=== PATIENT | male | born 1960 | race African-American/Black ===

== ENCOUNTER 2019-11-13 02:34 | Inpatient (IN) | payer SELFPAY ==
[~2019-11-13] VITALS: Ht 167.6 cm; Wt 91.5 kg
--- NOTE | 2019-11-13 02:38 | PHYS DOC ---
Past History Past Medical History: Asthma, Bronchitis Past Medical History Chronic Back pain Smoking: Non-smoker General Adult HPI: HPI: ".. I woke up with this cough.. about 9..may be 10... and I can't stop coughing.. I have hx asthma.. and I was at [facility] a week or two ago.. the gave me prednisone.. and inhaler's.. but. . this pinky started again tonight... " Patient is a 59 year old male who presents with above hx and complaints persistent intractable cough since approximately 2100 hrs. tonight. Patient denies any fever chills but has been diaphoretic. Patient denies any history of cardiac disorders. Patient does give a history of past asthma and bronchitis. Patient has history of chronic low back pain. Patient normally follows with Jaja Osuna at the [facility]. No recent travel outside the [place] area. No specific ill contacts. 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 Patient does not smoke tobacco. Pt. reportedly had a negative Covid test and flu tests 2 weeks ago at [facility]. Review of Systems: Review of Systems: Constitutional: Denies fever or chills Eyes: Denies change in visual acuity HENT: Denies nasal congestion or sore throat Respiratory: Complains of an intractable cough and wheezing Cardiovascular: Denies chest pain or edema GI: Denies abdominal pain, nausea, vomiting, bloody stools or diarrhea : Denies dysuria Musculoskeletal: Denies back pain or joint pain Integument: Denies rash Neurologic: Denies headache, focal weakness or sensory changes Endocrine: Denies polyuria or polydipsia Lymphatic: Denies swollen glands Psychiatric: Denies depression or anxiety Heart Score: HEART Score for Chest Pain: HEART Score for Chest Pain Response (Comments) Value History Moderately Suspicious 1 ECG Nonspecific Repolarizatio 1 Age >45 - < 65 1 Risk Factors 1 or 2 Risk Factors 1 Troponin >1-<3x Normal Limit 1 Total 5 Risk Factors: Risk Factors: DM, Current or recent (<one month) smoker, HTN, HLP, family history of CAD, obesity. Risk Scores: Score 0 - 3: 2.5% MACE over next 6 weeks - Discharge Home Score 4 - 6: 20.3% MACE over next 6 weeks - Admit for Clinical Observation Score 7 - 10: 72.7% MACE over next 6 weeks - Early Invasive Strategies Family History: Family History: Mother had history of pancreatic cancer and at age 79. Father is still alive at 86 and no health problems. Current Medications: Current Meds: See nursing for home meds. Allergies: Allergies: Allergic to a pain med he does not remember the name-nonnarcotic Physical Exam: PE: Constitutional: Moderate acute distress, non-toxic appearance. [] HENT: Normocephalic, atraumatic, bilateral external ears normal, oropharynx moist, no oral exudates, nose clear rhinorrhea Eyes: PERRLA, EOMI, conjunctiva normal, no discharge. [] Neck: Normal range of motion, no tenderness, supple, no stridor. [] Cardiovascular:Heart rate regular rhythm, no murmur, PMI to the left Lungs & Thorax: Bilateral breath sounds equal apex with basilar crackles on auscultation []. The patient does few scattered wheezes. Abdomen: Bowel sounds normal, soft, no tenderness, no masses, no pulsatile masses. [] Skin: Warm, diaphoretic, no erythema, no rash. [] Back: No tenderness, no CVA tenderness. [] Extremities: No tenderness, no cyanosis, no clubbing, ROM intact, no edema. No cording in the legs appreciated Neurologic: Alert and oriented X 3, moves extremities on request, has distal s ensory., no focal deficits noted. [] Psychologic: Affect anxious, judgement normal, mood normal. [] EKG: EKG: My interpretation EKG shows a sinus rhythm at 73 bpm. Does have bimodal P waves and left axis deviation. There is a fascicular block with somewhat atypical repolarization. Does exhibit a strain pattern -abnormal EKG [] Radiology/Procedures: Radiology/Procedures: IMAGING REPORT Signed PATIENT: DASIA ROMERO ACCOUNT: [id number] : 1960 LOCATION: ER AGE: 59 SEX: M EXAM STATUS: REG ER ORD. PHYSICIAN: DIMITRI PANDEY MD REASON: cough, dyspnea- acute onset PROCEDURE: CHEST PA & LATERAL CHEST PA LATERAL Technique: PA and lateral views of the chest were obtained. Clinical History: Cough and dyspnea Comparison: None. Findings: The heart and pulmonary vasculature appear within normal limits. There is a few linear opacities in the lung bases. The pleural margins are clear. Impression: Mild basal infiltrates could be discoid atelectasis or early pneumonia. Electronically signed by: Baljinder Franks III, MD (11/13/2019 3:59 AM) [id number] DICTATED AND SIGNED BY: BALJINDER FRANKS III, MD DATE: 11/13/19 0359 CC: DIMITRI PANDEY MD; ARCADIO OSUNA APRN ~ [][address] [id number] IMAGING REPORT Signed PATIENT: DASIA ROMERO ACCOUNT: [id number] : 1960 LOCATION: ER AGE: 59 SEX: M EXAM STATUS: REG ER ORD. PHYSICIAN: DIMITRI PANDEY MD REASON: cough, dyspnea, OMNI 350, 100ml PROCEDURE: CT ANGIOGRAPHY CHEST CTA Chest with contrast: Clinical History: Shortness of breath. Axial helical images of the chest were obtained after the administration of 100 cc of IV Omni 350 and timed appropriately for a pulmonary arterial study. Conventional axial reconstruction was performed in addition to coronal, sagittal and bilateral oblique MIP (maximum intensity projection). This study was ordered to detect possible pulmonary embolism. There are no filling defects to suggest pulmonary embolism. There is mucous plugging in the lower lobes bilaterally. There are a few tiny noncalcified pulmonary nodules on the right. The largest measures 3 mm in diameter. There is no mediastinal or hilar lymphadenopathy. The thoracic aorta appears normal. Impression: 1. No evidence of pulmonary embolism. 2. Mucous plugging in the lower lobes. 3. Tiny pulmonary nodules. Recommend a 6 month follow-up CT chest without contrast. End impression PQRS Compliance Statement: One or more of the following individualized dose reduction techniques were utilized for this examination: 1. Automated exposure control 2. Adjustment of the mA and/or kV according to patient size 3. Use of iterative reconstruction technique Electronically signed by: Baljinder Franks III, MD (11/13/2019 5:07 AM) [id number] Course & Med Decision Making: Course & Med Decision Making Pertinent Labs and Imaging studies reviewed. (See chart for details) Discussed presentation, testing and treatment plan with Dr. Oviedo. Admit to Dr. Oviedo with Cardiology Consult. Impression: 1. Atypical Pneumonia 2. Elevated Trop. 0.061 3. Dyspnea/ Cough 4. Intra Ventricular Block/ Fasicular Block [] Dragon Disclaimer: Jacob Disclaimer: This electronic medical record was generated, in whole or in part, using a voice recognition dictation system. Departure Departure: Disposition: HOME/RESIDENCE PRIOR TO ADM Condition: STABLE DIMITRI PANDEY MD November 13, 2019 02:38
--- NOTE | 2019-11-13 03:02 | EKG ---
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
[2019-11-13] MEDS ORDERED: ALBUTEROL SULFATE 8GM INHALER. IH ONE (03:30)
[2019-11-13] MEDS ORDERED: methylPREDNISolone SOD SUCC PF 125 MG/2 ML VIAL. IV ONE (03:30)
[2019-11-13] MEDS ORDERED: IV RINGERS SOLUTION,LACTATED 1,000 ML IV SCH (03:30)
[2019-11-13 03:59] LABS: BACTERIA,URINE 0 /HPF (0-FEW); BILIRUBIN,URINE NEG (NEG); CLARITY,URINE CLEAR; COLOR,URINE YELLOW; GLUCOSE,URINE NEG (NEG); NITRITE,URINE NEG (NEG); RBC,URINE 0 /HPF (0-2); SQUAMOUS EPITHELIAL CELL,UR OCC /LPF; UROBILINOGEN,URINE 0.2 mg/dL (0.2 mg/dL)
[2019-11-13 04:00] LABS: CALCIUM 9.1 mg/dL (8.5-10.1); GFR 92.2; POTASSIUM 3.8 mmol/L (3.5-5.1)
[2019-11-13 04:02] LABS: AMPHETAMINE/METHAMPHETAMINE NEG (NEG); BARBITURATES NEG (NEG); BENZODIAZEPINES NEG (NEG); CANNABINOIDS POS (NEG); COCAINE NEG (NEG); METHADONE NEG (NEG); OPIATES POS (NEG); PHENCYCLIDINE NEG (NEG)
--- NOTE | 2019-11-13 04:02 | RAD ---
CHEST PA LATERAL Technique: PA and lateral views of the chest were obtained. Clinical History: Cough and dyspnea Comparison: None. Findings: The heart and pulmonary vasculature appear within normal limits. There is a few linear opacities in the lung bases. The pleural margins are clear. Impression: Mild basal infiltrates could be discoid atelectasis or early pneumonia. Electronically signed by: Markie Saavedra III, MD (11/13/2019 3:59 AM) [id number]
[2019-11-13] MEDS ORDERED: MORPHINE SULFATE 10 MG/ML SYRINGE. ONE (04:12)
[2019-11-13 04:15] LABS: ALBUMIN 3.8 g/dL (3.4-5.0); DIRECT BILIRUBIN 0.1 mg/dL (0.0-0.2); TOTAL BILIRUBIN 0.3 mg/dL (0.2-1.0)
[2019-11-13 04:24] LABS: BASO % 1 % (0-3); EOS # 0.5 x10^3/uL (0.0-0.7); EOS % 8 % (0-3); HEMATOCRIT 41.2 % (39.0-53.0); HEMOGLOBIN 13.7 g/dL (13.0-17.5); LYMPH # 2.2 x10^3/uL (1.0-4.8); LYMPH % 37 % (24-48); MEAN CORPUSCULAR HEMOGLOBIN 32 pg (25-35); MEAN CORPUSCULAR HGB CONC 33 g/dL (31-37); MEAN CORPUSCULAR VOLUME 95 fL (79-100); MONO # 0.7 x10^3/uL (0.0-1.1); MONO % 12 % (0-9); NEUT # 2.5 x10^3uL (1.8-7.7); NEUT % 42 % (31-73); PLATELET COUNT 231 x10^3/uL (140-400); RED BLOOD COUNT 4.32 x10^6/uL (4.30-5.70); RED CELL DISTRIBUTION WIDTH 13.4 % (11.5-14.5); WHITE BLOOD COUNT 5.9 x10^3/uL (4.0-11.0)
[2019-11-13] MEDS ORDERED: AZITHROMYCIN 250 MG TABLET. PO ONE (04:30)
[2019-11-13] MEDS ORDERED: MORPHINE SULFATE 10 MG/ML SYRINGE. SQ ONE (04:30)
[2019-11-13] MEDS ORDERED: CONTRAST GIVEN MC PRN (04:30)
[2019-11-13] MEDS ORDERED: IV NORMAL SALINE 50ML 50 ML ONE (04:47)
[2019-11-13] MEDS ORDERED: cefTRIAXone SODIUM 1 GM VIAL ONE (04:47)
[2019-11-13] MEDS ORDERED: IOHEXOL 350 MG/ML 100 ML VIAL. IV ONE (05:00)
--- NOTE | 2019-11-13 05:10 | RAD ---
CTA Chest with contrast: Clinical History: Shortness of breath. Axial helical images of the chest were obtained after the administration of 100 cc of IV Omni 350 and timed appropriately for a pulmonary arterial study. Conventional axial reconstruction was performed in addition to coronal, sagittal and bilateral oblique MIP (maximum intensity projection). This study was ordered to detect possible pulmonary embolism. There are no filling defects to suggest pulmonary embolism. There is mucous plugging in the lower lobes bilaterally. There are a few tiny noncalcified pulmonary nodules on the right. The largest measures 3 mm in diameter. There is no mediastinal or hilar lymphadenopathy. The thoracic aorta appears normal. Impression: 1. No evidence of pulmonary embolism. 2. Mucous plugging in the lower lobes. 3. Tiny pulmonary nodules. Recommend a 6 month follow-up CT chest without contrast. End impression PQRS Compliance Statement: One or more of the following individualized dose reduction techniques were utilized for this examination: 1. Automated exposure control 2. Adjustment of the mA and/or kV according to patient size 3. Use of iterative reconstruction technique Electronically signed by: Markie Saavedra III, MD (11/13/2019 5:07 AM) [id number]
[2019-11-13] MEDS ORDERED: ASPIRIN 325 MG TABLET PO ONE (06:00)
[2019-11-13] MEDS ORDERED: ENOXAPARIN ** NOTE DOSE ** SYRINGE SQ ONE (06:00)
[2019-11-13] MEDS ORDERED: ACETAMINOPHEN 325 MG TABLET PO PRN (06:00)
[2019-11-13] MEDS ORDERED: ONDANSETRON PF 4 MG/2 ML VIAL. IVP PRN (06:00)
[2019-11-13] MEDS ORDERED: ANTI-COAG MONITOR BY PHARMACY. MC PRN (06:15)
[2019-11-13] MEDS ORDERED: IPRATRPIUM/ALBUTEROL 0.5/2.5MG 3 ML NEBU. NEB SCH (08:00)
[2019-11-13] MEDS ORDERED: ASPIRIN CHEWABLE 81 MG TABLET. PO SCH (08:00)
[2019-11-13 08:43] VITALS: BP 126/90
[2019-11-13] MEDS ORDERED: ALBUTEROL SULFATE 8GM INHALER. INH PRN (09:00)
--- NOTE | 2019-11-13 09:24 | PDOC2 ---
CARDIAC CONSULT DATE OF CONSULT Date Of Consult DATE: 11/13/19 TIME: 09:20 REASON FOR CONSULT Reason for Consult Dyspnea Elevated troponin REFERRING PHYSICIAN Referring Physician Dr. Yao SOURCE Source: Chart review, Patient HPI History of Present Illness This is a 59 yo male who presented secondary to persistent cough that has not improved with outpatient treatment. Reports persistent cough for the last 2 months. Has been coughing so much that his chest is sore. Also has chronic back pain, which has eli exacerbated by coughing. Cough productive of clear sputum. Was treated at the [facility] about two weeks ago with prednisone and inhaler, which did improve cough, but returned within 2-3 days of completing treatment. Was swabbed at the [facility] for COVID and influenza 2 weeks ago, which he reports as normal. No dizziness, palpitations, or LE edema. Reports all the muscles in his chest are sore and are tender upon palpitations. Cough worsens his pain. Troponin noted to be mildly elevated upon arrival, which prompted this consult. No h/o CAD. PAST MEDICAL HISTORY Pulmonary: Asthma Renal/: Benign prostatic enlarg. PAST SURGICAL HISTORY Past Surgical History: No pertinent history FAMILY HISTORY Family History: Other (AFIB, mother ) SOCIAL HISTORY Smoke: No ALCOHOL: none Drugs: Marijuana Lives: Alone CURRENT MEDICATIONS Current Medications Current Medications Lactated Ringer's 1,000 ml @ 100 mls/hr Q10H IV Last administered on 11/13/19at 03:30; Start 11/13/19 at 03:30; Stop 11/13/19 at 13:29 Albuterol Sulfate (Ventolin Hfa Inhaler) 2 puff 1X ONCE IH Last administered on 11/13/19at 03:06; Start 11/13/19 at 03:30; Stop 11/13/19 at 03:31; Status DC Methylprednisolone Sodium Succinate (SOLU-Medrol 125MG VIAL) 125 mg 1X ONCE IV Last administered on 11/13/19at 03:30; Start 11/13/19 at 03:30; Stop 11/13/19 at 03:31; Status DC Morphine Sulfate (Morphine 10mg Syringe) 10 mg 1X ONCE SQ Last administered on 11/13/19at 04:25; Start 11/13/19 at 04:30; Stop 11/13/19 at 04:31; Status DC Azithromycin (Zithromax) 500 mg 1X ONCE PO Last administered on 11/13/19at 04:30; Start 11/13/19 at 04:30; Stop 11/13/19 at 04:31; Status DC Ceftriaxone Sodium 1 gm/ Sodium Chloride 50 ml @ 100 mls/hr 1X ONCE IV Last administered on 11/13/19at 04:30; Start 11/13/19 at 04:30; Stop 11/13/19 at 04:59; Status DC Morphine Sulfate (Morphine 10mg Syringe) 10 mg STK-MED ONCE .ROUTE ; Start 11/13/19 at 04:12; Stop 11/13/19 at 04:13; Status DC Iohexol (Omnipaque 350 Mg/ml) 100 ml 1X ONCE IV Last administered on 11/13/19at 04:34; Start 11/13/19 at 05:00; Stop 11/13/19 at 05:01; Status DC Info (Do NOT chart on this entry -- for MONITORING) 1 each PRN DAILY PRN MC SEE COMMENTS; Start 11/13/19 at 04:30; Stop 11/15/19 at 04:29 Sodium Chloride 50 ml @ As Directed STK-MED ONCE .ROUTE ; Start 11/13/19 at 04:47; Stop 11/13/19 at 04:47; Status DC Ceftriaxone Sodium (Rocephin) 1 gm STK-MED ONCE .ROUTE ; Start 11/13/19 at 04:47; Stop 11/13/19 at 04:47; Status DC Aspirin (Ladarius Aspirin) 325 mg 1X ONCE PO Last administered on 11/13/19at 05:38; Start 11/13/19 at 06:00; Stop 11/13/19 at 06:01; Status DC Enoxaparin Sodium (Lovenox 100mg Syringe) 90 mg 1X ONCE SQ Last administered on 11/13/19at 05:38; Start 11/13/19 at 06:00; Stop 11/13/19 at 06:01; Status DC Ondansetron HCl (Zofran) 4 mg PRN Q4HRS PRN IVP NAUSEA/VOMITING; Start 11/13/19 at 06:00; Stop 11/14/19 at 05:59 Acetaminophen (Tylenol) 650 mg PRN Q4HRS PRN PO FEVER > 100.3'F Last administered on 11/13/19at 09:04; Start 11/13/19 at 06:00; Stop 11/14/19 at 05:59 Albuterol/ Ipratropium (Duoneb) 3 ml RTQID NEB ; Start 11/13/19 at 08:00; Stop 11/13/19 at 08:57; Status DC Aspirin (Aspirin Chewable) 81 mg DAILYWBKFT PO Last administered on 11/13/19at 09:03; Start 11/13/19 at 08:00 Enoxaparin Sodium (Lovenox 100mg Syringe) 90 mg Q12HR SQ ; Start 11/13/19 at 21:00 Ceftriaxone Sodium 1 gm/ Sodium Chloride 50 ml @ 100 mls/hr DAILY06 IV ; Start 11/14/19 at 06:00 Azithromycin (Zithromax) 250 mg DAILY06 PO ; Start 11/14/19 at 06:00 Albuterol Sulfate (Ventolin Hfa Inhaler) 2 puff PRN QID PRN INH SHORTNESS OF BREATH; Start 11/13/19 at 09:00 Info (Anti-Coagulation Monitoring By Pharmacy) 1 each PRN DAILY PRN MC SEE COMMENTS; Start 11/13/19 at 06:15 ALLERGIES Allergies: Coded Allergies: No Known Drug Allergies (Unverified , 11/13/19) ROS Review of Systems 14 point ROS conducted with pertinent positives noted above in HPI PHYSICAL EXAM General: Alert, Oriented X3, Cooperative, No acute distress HEENT: Atraumatic, Mucous membr. moist/pink Lungs: Other (diminished ) Heart: Regular rate, Normal S1, Normal S2 Abdomen: Soft, No tenderness Extremities: No edema, Normal pulses Skin: No rashes Neuro: Normal speech, Sensation intact Psych/Mental Status: Mental status NL, Mood NL MUSCULOSKELETAL: No joint tenderness VITALS Vital Signs Vital Signs Date Time Temp Pulse Resp B/P (MAP) Pulse Ox O2 Delivery O2 Flow Rate FiO2 11/13/19 08:43 98.3 73 20 126/90 (102) 96 Room Air LABS LABS Laboratory Tests Test 11/13/19 03:20 11/13/19 03:25 11/13/19 03:50 11/13/19 08:30 Urine Collection Type Unknown Urine Color Yellow Urine Clarity Clear Urine pH 6.0 Urine Specific [place] 1.015 Urine Protein Neg (NEG-TRACE) Urine Glucose (UA) Neg mg/dL (NEG) Urine Ketones (Stick) Neg mg/dL (NEG) Urine Blood Neg (NEG) Urine Nitrite Neg (NEG) Urine Bilirubin Neg (NEG) Urine Urobilinogen Dipstick 0.2 mg/dL (0.2 mg/dL) Urine Leukocyte Esterase Trace (NEG) Urine RBC 0 /HPF (0-2) Urine WBC 5-10 /HPF (0-4) Urine Squamous Epithelial Cells Occ /LPF Urine Bacteria 0 /HPF (0-FEW) Urine Opiates Screen Pos (NEG) Urine Methadone Screen Neg (NEG) Urine Barbiturates Neg (NEG) Urine Phencyclidine Screen Neg (NEG) Urine Amphetamine/Methamphetamine Neg (NEG) Urine Benzodiazepines Screen Neg (NEG) Urine Cocaine Screen Neg (NEG) Urine Cannabinoids Screen Pos (NEG) Urine Ethyl Alcohol Neg (NEG) Prothrombin Time 10.0 SEC (9.4-11.4) Prothromb Time International Ratio 1.0 (0.9-1.1) Activated Partial Thromboplast Time 26 SEC (23-33) D-Dimer (Karla) 0.39 mg/L (0.00-0.50) Sodium Level 144 mmol/L (136-145) Potassium Level 3.8 mmol/L (3.5-5.1) Chloride Level 106 mmol/L (98-107) Carbon Dioxide Level 28 mmol/L (21-32) Anion Gap 10 (6-14) Blood Urea Nitrogen 11 mg/dL (8-26) Creatinine 1.0 mg/dL (0.7-1.3) Estimated GFR (Cockcroft-Gault) 92.2 Glucose Level 83 mg/dL (70-99) Calcium Level 9.1 mg/dL (8.5-10.1) Magnesium Level 2.0 mg/dL (1.8-2.4) Total Bilirubin 0.3 mg/dL (0.2-1.0) Direct Bilirubin 0.1 mg/dL (0.0-0.2) Aspartate Amino Transf (AST/SGOT) 48 U/L (15-37) Alanine Aminotransferase (ALT/SGPT) 25 U/L (16-63) Alkaline Phosphatase 67 U/L (46-116) Creatine Kinase 272 U/L (39-308) Troponin I Quantitative 0.061 ng/mL (0-0.055) 0.051 ng/mL (0-0.055) TQ-Pcz-K-Type Natriuretic Peptide 226 pg/mL (0-124) Total Protein 7.0 g/dL (6.4-8.2) Albumin 3.8 g/dL (3.4-5.0) Lipase 129 U/L (73-393) White Blood Count 5.9 x10^3/uL (4.0-11.0) Red Blood Count 4.32 x10^6/uL (4.30-5.70) Hemoglobin 13.7 g/dL (13.0-17.5) Hematocrit 41.2 % (39.0-53.0) Mean Corpuscular Volume 95 fL (79-100) Mean Corpuscular Hemoglobin 32 pg (25-35) Mean Corpuscular Hemoglobin Concent 33 g/dL (31-37) Red Cell Distribution Width 13.4 % (11.5-14.5) Platelet Count 231 x10^3/uL (140-400) Neutrophils (%) (Auto) 42 % (31-73) Lymphocytes (%) (Auto) 37 % (24-48) Monocytes (%) (Auto) 12 % (0-9) Eosinophils (%) (Auto) 8 % (0-3) Basophils (%) (Auto) 1 % (0-3) Neutrophils # (Auto) 2.5 x10^3uL (1.8-7.7) Lymphocytes # (Auto) 2.2 x10^3/uL (1.0-4.8) Monocytes # (Auto) 0.7 x10^3/uL (0.0-1.1) Eosinophils # (Auto) 0.5 x10^3/uL (0.0-0.7) Basophils # (Auto) 0.0 x10^3/uL (0.0-0.2) ASSESSMENT/PLAN Assessment/Plan 1. Dyspnea, asthma, persistent; COVID pending. ? reflux 2. Chest pain, atypical. Most probably MSK secondary to persistent coughing 3. Mild troponin elevation; peak 0.06. Most probably type II, demand ischemia 4. Mild LFT elevation 5. Marijuana use Recommendations Lipids Await COVID. If negative, can obtain echo to assess LV systolic function Consider outpatient ischemic evaluation Add PPI Supportive care ESTELITA JOHNSTON APRN November 13, 2019 09:24
[2019-11-13] MEDS ORDERED: FINA5TAB4 PO (11:01)
[2019-11-13] MEDS ORDERED: MELO15TA23 PO (11:01)
[2019-11-13] MEDS ORDERED: OXYC1TAB15 PO (11:01)
[2019-11-13] MEDS ORDERED: LIDO700A21 TP (11:01)
[2019-11-13] MEDS ORDERED: TAMS0.4C97 PO (11:01)
[2019-11-13] MEDS ORDERED: TIZA4TAB2 PO (11:01)
[2019-11-13] MEDS ORDERED: GUAI120L35 PO (11:01)
[2019-11-13 12:29] VITALS: BP 134/89
[2019-11-13] MEDS ORDERED: MELOXICAM 15 MG TABLET. PO PRN (13:45)
[2019-11-13] MEDS ORDERED: tiZANidine 4 MG TABLET. PO PRN (13:45)
[2019-11-13] MEDS ORDERED: oxyCODONE/APAP 5/325 1 TAB TABLET PO PRN (13:45)
[2019-11-13] MEDS ORDERED: AZIT500T PO (14:28)
[2019-11-13] MEDS ORDERED: PRED20TA PO (14:28)
[2019-11-13] MEDS ORDERED: PANT40TA3 PO (14:28)
[2019-11-13] MEDS ORDERED: IPRA3AMP29 NEB (14:28)
[2019-11-13] MEDS ORDERED: PANTOPRAZOLE 40 MG TABLET. PO SCH (14:45)
[2019-11-13] MEDS ORDERED: ONDANSETRON ODT 4 MG TAB.RAPDIS PO ONE (15:45)
--- NOTE | 2019-11-13 16:32 | SSS ---
ADMIT DATE: 11/13/2019 HISTORY OF PRESENT ILLNESS: The patient is a 59-year-old -[place] male patient who presented to the Emergency Room of [facility] with recurrent bouts of cough, shortness of breath, body aches, sweating, headache, nausea and vomiting for the last 2 months. He apparently was seen about 3 weeks ago at the [facility], was treated with antibiotic. He was tested for COVID-19, was negative. The flu was negative. His symptoms continued and he was seen again in the Emergency Room with the [facility], was given a tapering course of steroids that he completed about 4-5 days ago and apparently he continued to have these symptoms and therefore he drove himself to [facility]. He was extensively evaluated. His lab work showed his white cell count was normal. His chemistry was unremarkable. His troponin was slightly elevated at 0.061. However, the second troponin was lower and he was evaluated by the Cardiology team and it was felt that the patient can follow the treatment as an outpatient. He has had a chest x-ray, which showed mild basal infiltrate, could be discoid atelectasis or early pneumonia; however, CT angio of the chest showed the patient has no filling defects to suggest pulmonary embolism. There is mucus plugging in the lower lobe bilaterally. There are few tiny noncalcified pulmonary nodules on the right, the largest measures 3 mm in diameter. There is no mediastinal or hilar lymphadenopathy. The thoracic aorta appears normal. He was admitted and he was given treatment with ceftriaxone as well as Zithromax and was given 125 mg of Solu-Medrol and was started on Lovenox 90 mg subcutaneously once and was admitted for further evaluation. The COVID test was sent again and he has blood and urine culture. He was afebrile throughout his stay here. His white cell count was normal. PAST MEDICAL HISTORY: According to him, his past medical history is significant for benign prostatic hypertrophy, chronic back pain due to degenerative disk disease. He has also mild bronchial asthma and the last flareup was about 2014. PAST SURGICAL HISTORY: Significant for cyst removed from the back of his neck when he was a baby. ALLERGIES: He has no known drug allergies. MEDICATIONS: He is currently on following medications: He is on Flomax 0.4 mg twice a day with meals, tizanidine 4 mg every 6 hours, meloxicam 15 mg daily p.r.n. He is on oxycodone/APAP 5/325 one tablet twice a day. He is on codeine and guaifenesin, takes 10 mL every 4 hours and Lidoderm patch applied topically to the back on for 12 hours and off for 12 hours. He is also on finasteride 5 mg at bedtime. FAMILY HISTORY: He has 3 brothers, 2 brothers older, one of them has COPD. His younger brother was killed; 2 sisters, one older has COPD on oxygen; the younger sister is healthy. His father is still alive at the age of 87. His mother at age 79 because of pancreatitis. SOCIAL HISTORY: He is , lives with his girlfriend. He has a son and a daughter. He quit smoking years ago. He used to smoke cigars and smoked for about 3-4 years. He does not drink alcohol or uses marijuana. 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 He does not do much in terms of physical work. There was no change in the environment that he is working at and none of the parents or the brother of the autistic child has any medical problem. REVIEW OF SYSTEMS: The patient denies any blurring of vision, cataract, glaucoma or macular degeneration. Denied any earache, tinnitus or sensorineural deafness. Denied any nosebleeds, stuffy nose or postnasal drip. Denied any sore tongue. He did complain of sore throat and difficulty swallowing. Denied any nausea or vomiting. Denied any diarrhea or constipation. Denied any hematemesis, melena or hematochezia. He does have frequency and nocturia, but denied any dysuria or hematuria. Did complain of generalized aches and pains including chest. He also complained of what sounded to be orthopnea, has also cough which is mostly dry. Denied any chills, rigors or fever. PHYSICAL EXAMINATION: GENERAL: When I examined him today, he was resting, slightly propped up in bed, in no apparent respiratory distress. There was no pallor, jaundice, cyanosis or thyromegaly. No jugular venous distention. No lower limb edema. VITAL SIGNS: His heart rate was 75, blood pressure was 134/89, temperature was 98.1, respiratory rate was 18 and oxygen saturation was 97% on room air. HEAD, EYES, EARS, NOSE AND THROAT: Showed normocephalic, atraumatic. NECK: Supple. HEART: Showed normal first and second heart sounds with no gallop, rub or murmur. CHEST: Clear to auscultation. No crepitation or rhonchi. I really could not appreciate any crepitation or rhonchi. ABDOMEN: Distended, soft, nontender. NEUROLOGIC: He is awake, alert, responding appropriately. All his cranial nerves were intact. EXTREMITIES: He moves extremities without difficulty. He ambulates without assistance or assistive devices. LABORATORY DATA: His lab work showed a white cell count 5900, hemoglobin 13.7, hematocrit 41, MCV 95, and platelet count 231,000. Serum sodium was 144, potassium 3.8, chloride 106, bicarbonate 28, anion gap of 10, BUN 11, creatinine 1, estimated GFR was 92 mL per minute. His glucose was 83, calcium was 9.1, magnesium 2. Total bilirubin, AST, ALT, alkaline phosphatase were normal. His CK was 172. Troponin peaked at 0.061, second one was 0.051. His beta natriuretic peptide was 226. Total protein was 7, albumin was 3.8 and lipase was 129. His prothrombin time was 10, INR of 1, aPTT 26. D-dimer was 0.39. His urinalysis showed the urine was yellow, clear with a pH of 6, specific gravity of 1.015. The urine was negative for protein, glucose, ketones, blood, nitrite, leukocyte esterase, and there was 0 rbc's and 5-10 wbc's, and no bacteria. His toxic screen was positive for opiates as well as cannabinoids, but negative for methadone, barbiturates, phencyclidine, amphetamine, methamphetamine, benzodiazepine, cocaine and ethyl alcohol. His EKG showed that he was in sinus rhythm with anterior fascicular block and some nonspecific ____ conduction defect. ASSESSMENT AND PLAN: So, in summary, this is a 59-year-old -[place] who was apparently complaining of cough according to him for the last 2 months. He was evaluated at the [facility] and tested for flu and COVID-19 and was negative. He was treated with antibiotic for 1 week and has received a course of steroids that he completed about 4-5 days ago. He continued with the complaint of shortness of breath, chronic cough that is mostly dry. He stated that he has headaches, had sweating, nausea; however, throughout my interview, I have not seen him cough for even once. He was resting comfortably. He was afebrile. His oxygen saturation was 97% on room air. His lab works are all unremarkable. Chest x-ray and CT scan of the chest showed no evidence of pulmonary embolism, neither pneumothorax, pleural effusion or pneumonia. There are no features even suggestive of COVID-19. He has mucus plugging that make a fact that he probably has the cough variant bronchial asthma. I explained to him all the findings and I recommended that he should be treated for multiple causes of chronic cough. I will treat him with Zithromax for atypical pneumonia, Protonix for acid reflux, steroids for bronchial asthma together with nebulized treatment and I made it clear to him that if his symptom has not subsided, he needs to be seen by gifted program teacher. ROSE MERINO MD DR: HOWARD/coleen JOB#: [id number] / [id number]
[2019-11-13] MEDS ORDERED: TAMSULOSIN 0.4 MG CAP.ER.24H. PO SCH (17:00)
[2019-11-13 19:09] LABS: THYROID STIM HORMONE (TSH) 1.553 uIU/mL (0.358-3.740)
[2019-11-13] MEDS ORDERED: ENOXAPARIN ** NOTE DOSE ** SYRINGE SQ SCH (21:00)
[2019-11-13] MEDS ORDERED: FINASTERIDE 5 MG TABLET PO SCH (21:00)
[2019-11-14] MEDS ORDERED: AZITHROMYCIN 250 MG TABLET. PO SCH (06:00)
[2019-11-14] MEDS ORDERED: LIDOCAINE (700MG/PATCH) PATCH. TP SCH (09:00)
== END 2019-11-13 16:05 | disposition home or self-care (01) | DRG 194 ==
LOC: ER 02:34 → OBSVTOIN 05:30 → ICU 05:30
PROVIDERS: ADMIT Internal Medicine; ATTEND Internal Medicine
DX: J18.9 Pneumonia, unspecified organism (principal); F84.0 Autistic disorder; F12.90 Cannabis use, unspecified, uncomplicated; G89.29 Other chronic pain; I45.4 Nonspecific intraventricular block; J45.909 Unspecified asthma, uncomplicated; Z20.828 Contact with and (suspected) exposure to other viral communicable diseases; K21.9 Gastro-esophageal reflux disease without esophagitis; N40.0 Benign prostatic hyperplasia without lower urinary tract symptoms; R13.10 Dysphagia, unspecified; Z80.0 Family history of malignant neoplasm of digestive organs; Z82.5 Family history of asthma and other chronic lower respiratory diseases; Z87.891 Personal history of nicotine dependence; Z79.899 Other long term (current) drug therapy
CPT/HCPCS: 36415; 71046; 71275; 80048; 80061; 80076; 80307; 81001; 82550; 83690; 83735; 83880; 84443; 84484; 85025; 85379; 85610; 85730; 87040; 87086; 87635; 93005; J0456; J0696; J1650; J2270; J2930; J7120; J7613; Q0162; Q9967